=== PATIENT | male | born 1940 | race Caucasian/White ===

== ENCOUNTER 2016-09-28 10:57 | Inpatient (IN) | payer OTHER, MEDICARE ==
--- NOTE | 2016-09-28 11:11 | CPEKG ---
Heart Rate: 55 RR Interval: 1091 P-R Interval: 172 QRSD Interval: 90 QT Interval: 464 QTC Interval: 444 QRS [place]: 22 T Wave [place]: 8 EKG Severity - ABNORMAL ECG - EKG Impression: ATRIAL-PACED RHYTHM Electronically Signed By: Fer Gorman 28-Sep-2016 14:47:21
[2016-09-28] MEDS ORDERED: NS 1,000 ML IV ONE (11:13)
--- NOTE | 2016-09-28 11:13 | EDPHY ---
HPI/HX/ROS/PE/MDM Narrative: CHIEF COMPLAINT: "Strange state of consciousness" HPI: This patient is an anticoagulated 75 y/o male arriving with his family complaining of sudden onset "strange state of consciousness" this morning. He reports that he developed a "vertiginous kind of feeling" and difficulty balancing while walking to his kitchen this morning, which has persisted. He describes associated tingling over his entire body. His symptoms did not improve with rest or lying down. He has been treated recently for a flare-up of gout with Indomethacin and Prednisone. He started Eliquis for atrial fibrillation within the last week. His family notes he has been under considerable stress recently. REVIEW OF SYSTEMS: Aside from elements discussed in the HPI, a comprehensive 10- point review of systems was reviewed and is negative. PMH: Atrial fibrillation (Eliquis), pacemaker, gout (Indomethacin, Prednisone) SOCIAL HISTORY: Family at bedside. Psychiatrist. Currently moving residences. PCP: Dr. Whitaker PHYSICAL EXAM: General:Patient is alert, in no acute distress. BP 222/104 ENT:Eyes are normal to inspection. ENT inspection normal. Neck: Normal inspection. Full range of motion. Respiratory:No respiratory distress. Breath sounds normal bilaterally. Cardiovascular: Regular rate and rhythm. Strong peripheral pulses. Normal cap refill. Abdomen:The abdomen is nontender to palpation. There are no peritoneal signs. Back: Normal to inspection. No tenderness to palpation. Skin: Normal color. No rash. Warm and dry. Extremities: Normal appearance. Full range of motion. Neuro: Oriented x3. Normal motor function. Normal sensory function. No pronator drift. Rukqme-bb-jvin exam normal. Rtmt-wk-[id number] exam normal. Face symmetric. Normal speech. ED Course: The patient is an anticoagulated 75 y/o male who presents today complaining of acute onset difficulty balancing upon standing and subsequent anxiety. He has a normal neurologic exam. Notably, his initial BP was 222/104. We discussed treatment options and he agreed with head imaging. IV established, labs ordered including CBC, CHEM, PTPTT, Toponin, and LFTs. Patient placed on primary care sales representative. 1L IV NS administered. 11:50 CT Head unremarkable per Dr. Coronado. The 12 lead EKG was interpreted by myself. See hard copy and/or "tracemaster" electronic copy for interpretation. Atrial paced rhythm. Reevaluated patient. Discussed CT head result. Labs unremarkable. Plan for MRI. RN reports patient did well while ambulating by himself. Though he continues to report symptoms, his gait was objectively normal. Unfortunately, we cannot proceed with brain MRI due to patient's pacemaker. 12:[address] Etienne regarding admission. MDM: This patient presents with a number of complaints including AMS and feeling off balance. There are no objective signs of stroke, and patient walks with a steady gait despite complaint of feeling off-balance. His workup including CTH is negative, but I am unable to perform an MRI due to his pacemaker in order to rule out posterior fossa disease, small CVA. There is certainly no indication for tPA. The major item of concern is his elevated BP, which was quite high on arrival, but has been trending down without intervention. The patient and his family are very concerned, and feel comfortable with the plan for admission to the hospital for further workup and observation, as well as potential neurology consult. I see no evidence for ACS, sepsis, SAH, brain mass, CVA. - Data Points Imaging Results: Imaging Impressions Head CT 09/28/16 11:14 Impression: 1. Mild age-related stable atrophy. 2. No hemorrhage, mass effect, or definite acute peripheral infarct. Findings discussed with Fer Gorman MD at 11:53 hour, 09/28/2016. Imaging: Discussed imaging studies w/ director call Radiologist Laboratory Results: Laboratory Results 09/28/16 11:35 09/28/16 11:35 09/28/16 09/28/16 09/28/16 11:35 11:35 11:35 WBC 6.58 10^3/uL 10^3/uL (3.80-9.50) RBC 4.16 10^6/uL L 10^6/uL (4.40-6.38) Hgb 13.7 g/dL g/dL (13.7-17.5) Hct 40.0 % % (40.0-51.0) MCV 96.2 fL fL (81.5-99.8) MCH 32.9 pg pg (27.9-34.1) MCHC 34.3 g/dL g/dL (32.4-36.7) RDW 13.2 % % (11.5-15.2) Plt Count 233 10^3/uL 10^3/uL (150-400) MPV 9.4 fL fL (8.7-11.7) Neut % (Auto) 62.1 % % (39.3-74.2) Lymph % (Auto) 28.7 % % (15.0-45.0) [place] % (Auto) 7.1 % % (4.5-13.0) Eos % (Auto) 0.5 % L % (0.6-7.6) Baso % (Auto) 0.5 % % (0.3-1.7) Nucleat RBC Rel Count 0.0 % % (0.0-0.2) Absolute Neuts (auto) 4.09 10^3/uL 10^3/uL (1.70-6.50) Absolute Lymphs (auto) 1.89 10^3/uL 10^3/uL (1.00-3.00) Absolute Monos (auto) 0.47 10^3/uL 10^3/uL (0.30-0.80) Absolute Eos (auto) 0.03 10^3/uL 10^3/uL (0.03-0.40) Absolute Basos (auto) 0.03 10^3/uL 10^3/uL (0.02-0.10) Absolute Nucleated RBC 0.00 10^3/uL 10^3/uL (0-0.01) Immature Gran % 1.1 % % (0.0-1.1) Immature Gran # 0.07 10^3/uL 10^3/uL (0.00-0.10) PT 13.6 SEC SEC (12.0-15.0) INR 1.05 (0.83-1.16) APTT 26.9 SEC SEC (23.0-38.0) Sodium 141 mEq/L mEq/L (134-144) Potassium 4.4 mEq/L mEq/L (3.5-5.2) Chloride 107 mEq/L mEq/L (97-110) Carbon Dioxide 22 mEq/l mEq/l (22-31) Anion Gap 12 mEq/L mEq/L (8-16) BUN 19 mg/dL mg/dL (7-23) Creatinine 1.1 mg/dL mg/dL (0.7-1.3) Estimated GFR > 60 Glucose 96 mg/dL mg/dL (70-100) Calcium 8.8 mg/dL mg/dL (8.5-10.4) Total Bilirubin 0.6 mg/dL mg/dL (0.1-1.4) Conjugated Bilirubin 0.4 mg/dL mg/dL (0.0-0.5) Unconjugated Bilirubin 0.2 mg/dL mg/dL (0.0-1.1) AST 24 IU/L IU/L (17-59) ALT 33 IU/L IU/L (21-72) Alkaline Phosphatase 73 IU/L IU/L (38-126) Troponin I < 0.012 ng/mL ng/mL (0-0.034) Total Protein 6.9 g/dL g/dL (6.3-8.2) Albumin 4.0 g/dL g/dL (3.5-5.0) Medications Given: Discontinued Medications Sodium Chloride (Ns) 1,000 mls @ 0 mls/hr IV ONCE ONE PRN Reason: Wide Open Stop: 09/28/16 11:14 Last Admin: 09/28/16 11:40 Dose: 1,000 mls General Time Seen by Provider: 09/28/16 11:04 Initial Vital Signs: Initial Vital Signs Temperature (C) 36.8 C 09/28/16 10:57 Heart Rate 62 09/28/16 10:57 Respiratory Rate 18 09/28/16 10:57 Blood Pressure 222/104 H 09/28/16 10:57 O2 Sat (%) 95 09/28/16 10:57 O2 Delivery Mode Room Air Allergies/Adverse Reactions: Sulfa (Sulfonamide Antibiotics) Allergy (Verified 09/28/16 11:35) ELEVATED LIVER ENZYMES Home Medications: Medication Instructions Recorded Allopurinol [Allopurinol 100 MG 100 mg PO BID 09/28/16 (*)] Apixaban [Eliquis] 5 mg PO BID 09/28/16 Atorvastatin Calcium [Lipitor 10 10 mg PO DAILY 09/28/16 mg (*)] Cholecalciferol Vit D3 [Vitamin D3 5,000 units PO DAILY 09/28/16 (*)] Doxylamine Succinate [Nighttime 25 mg PO HS PRN 09/28/16 Sleep-Aid] Herbals/Supplements -Info Only 1 ea PO DAILY 09/28/16 Lisinopril [Zestril 5 mg (*)] 5 mg PO DAILY 09/28/16 Naproxen 250 mg PO BID PRN 09/28/16 Omeprazole [Prilosec 20 mg] 20 mg PO DAILY 09/28/16 predniSONE 10 mg PO DAILY 09/28/16 Departure - Departure Disposition: [facility] Inpatient Acute Clinical Impression: Difficulty balancing Condition: Fair Report Scribed for: Fer Gorman Report Scribed by: Xi Kaur Date of Report: 09/28/16 Time of Report: 11:14 Physician Review and Approval Statement: Portions of this note were transcribed by an ED scribe. I personally performed the history, physical exam, and medical decision making; and confirm the accuracy of the information in the transcribed note.
[2016-09-28 11:41] LABS: % IMMATURE GRANULYOCYTES 1.1 % (0.0-1.1); ABSOLUTE IMMATURE GRANULOCYTES 0.07 10^3/uL (0.00-0.10); ADD DIFF? NO; ADD MORPH? NO; ADD SCAN? NO; ATYPICAL LYMPHOCYTE FLAG 10 (0-99); FRAGMENT RBC FLAG 0 (0-99); HEMOGLOBIN 13.7 g/dL (13.7-17.5); LEFT SHIFT FLG 10 (0-99); LIPEMIA HEMOLYSIS FLAG 90 (0-99); MEAN CELL HEMOGLOBIN 32.9 pg (27.9-34.1); MEAN CELL HEMOGLOBIN CONCENTR. 34.3 g/dL (32.4-36.7); MEAN CELL VOLUME 96.2 fL (81.5-99.8); MEAN PLATELET VOLUME 9.4 fL (8.7-11.7); PLATELET CLUMPS FLAG 10 (0-99); PLATELET COUNT 233 10^3/uL (150-400); RED BLOOD CELL COUNT 4.16 10^6/uL (4.40-6.38); RED CELL DISTRIBUTION WIDTH 13.2 % (11.5-15.2)
[2016-09-28 11:50] LABS: APTT 26.9 SEC (23.0-38.0); INR 1.05 (0.83-1.16); PROTIME(PATIENT) 13.6 SEC (12.0-15.0)
[2016-09-28 11:53] LABS: ALANINE AMINOTRANSFERASE 33 IU/L (21-72); ALKALINE PHOSPHATASE 73 IU/L (38-126); ANION GAP 12 mEq/L (8-16); ASPARTATE AMINOTRANSFERASE 24 IU/L (17-59); BILIRUBIN,TOTAL 0.6 mg/dL (0.1-1.4); BILIRUBIN-CONJUGATED 0.4 mg/dL (0.0-0.5); BILIRUBIN-UNCONJUGATED 0.2 mg/dL (0.0-1.1); CALCIUM 8.8 mg/dL (8.5-10.4); CARBON DIOXIDE 22 mEq/l (22-31); CHLORIDE 107 mEq/L (97-110); CREATININE 1.1 mg/dL (0.7-1.3); GLOMERULAR FILTRATION RATE > 60; GLUCOSE 96 mg/dL (70-100); POTASSIUM 4.4 mEq/L (3.5-5.2); SODIUM 141 mEq/L (134-144); TOTAL PROTEIN 6.9 g/dL (6.3-8.2)
[2016-09-28 12:04] LABS: TROPONIN I < 0.012 ng/mL (0-0.034)
[2016-09-28] MEDS ORDERED: ONDANSETRON 4 MG/2 ML VIAL IVP PRN (14:38)
[2016-09-28] MEDS ORDERED: ACETAMINOPHEN 325 MG TAB PO PRN (14:38)
--- NOTE | 2016-09-28 17:34 | PDGENHP ---
History and Physical History and Physical: HISTORY AND PHYSICAL CC: Dizziness HISTORY: This patient was feeling well until earlier today when he was lying on a couch. As he got up from the couch to walk to the kitchen he suddenly had onset of what he describes as "a strange state of consciousness". When asking for more details about this he describes a vague type of dizziness that is neither vertigo nor lightheadedness and without any other neurologic symptoms, hearing symptoms, visual symptoms, headache, palpitations or chest pain, shortness of breath, nausea or febrile symptoms. The this symptom persisted to eventually came into the ER. This symptom itself is gradually dissipating at this time. He still feels that but less than what he started with. He has never had an episode of this kind of symptom before. Prior to this episode today he has had no other recent illness of any kind and has been feeling as well as usual physically. He does admit to having a lot of stress in related to moving house as well as his 's multiple sclerosis and dementia. He normally plays tennis a few times a week but has not been doing that for the past month or so due to his schedule and moving house. He has noticed no difficulty keeping up with physical activity though. There is a history of atrial fibrillation. This was noticed on interrogation of his pacemaker which is present for sick sinus syndrome. His atrial fibrillation so far has been completely asymptomatic and without fast heart rates, so he is started recently on anticoagulant with Eliquis but he is not on rate control medicine. In terms of his blood pressure does mention that he has some white coat syndrome. He is on a low-dose of lisinopril for the blood pressure. In addition to the above the patient did have a gout attack in his right 1st toe just recently. He was started on some prednisone for that and the prednisone has resolved gout symptoms entirely. He is still taking prednisone currently at 20 mg daily. 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 His has MS and some dementia and is fairly debilitated. They have just sold their house and moved into a new house recently and he has had a lot of stress related to that. He does not use tobacco or alcohol. MEDICATIONS: The patients list has been reconciled by our clinical pharmacist in the EMR. I have reviewed the list and ordered appropriate medicines. PHYSICAL EXAMINATION: Vital Signs: Quite hypertensive with initial blood pressure 200/102. This be hypertension is persisting so far. Pulse respirations temperature all normal Special Deputy Sheriff: sinus rhythm in the ER Examination: General: alert, oriented, good mentation, relaxed Neurologic: normal speech/language, normal sample worker, no focal weakness No tremor, nothing that looks like any kind of withdrawal, pupils normal Skin: warm, dry, good color, no rash; he does have numerous actinic keratoses HEENT: normal Neck: no mass or jvd Resps: relaxed Lungs: clear breath sounds Heart: regular, there is a 2/6 systolic murmur at the base Abdomen: soft, nondistended, nontender, +BS, no mass Upper Extremities: normal Lower Extremities: no edema, warm No Bleeding or bruising IV site: looks normal LABORATORY DATA: Unremarkable coagulation studies, troponin, met panel, and CBC RADIOLOGY STUDIES: Noncontrast CT scan of head done in the ER, I reviewed the images and my interpretation is: No evidence of stroke, bleed, mass, or other acute abnormality 12 lead EKG in the ER, my review tracing: Sinus rhythm with no ischemic or other concerning abnormalities ASSESSMENT: -Acute dizziness episode which is vaguely described hard to characterize or place into a likely etiologic syndrome -Hypertensive urgency, and it is possible that the hypertension is actually causing his acute symptoms above -Recent gout attack in toe is resolved after steroids which she still taking; notably the steroids could be contributing to his hypertension -recent diagnosis of atrial fibrillation without fast heart rate, recently started on Eliquis - PLANS: -observe overnight for resolution of symptoms -Will add further blood pressure medicine and follow blood pressures very closely, observing for any possible other complications of the blood pressure -Will get records from Dr. Estrella regarding his recent at echocardiogram and pacemaker interrogation which were done just about a week ago -Otherwise continue his usual medicines for now I have reviewed the patient's case in detail with Dr. Fer Gorman and I will be reviewing with Dr. Estrella I have reviewed the patient's past medical records as part of this assessment, including past hospitalization records here
[2016-09-28] MEDS ORDERED: DOXYLAMINE SUCCINATE 25 MG PO PRN (17:40)
[2016-09-28] MEDS: APIXABAN 5 MG TAB PO SCH (20:35)
[2016-09-28] MEDS ORDERED: CALCIUM CARBONATE 500 MG CHEWABLE TAB PO PRN (23:10)
[2016-09-28] MEDS: ZOLPIDEM TARTRATE 5 MG TAB PO PRN (23:21)
[2016-09-29] MEDS ORDERED: ENOXAPARIN 40 MG/0.4 ML SYR SC SCH (09:00)
[2016-09-29] MEDS: LISINOPRIL 5 MG TAB PO SCH (10:19)
[2016-09-29] MEDS: CHOLECALCIFEROL VIT D3 1,000 UNITS TAB PO SCH (10:19)
[2016-09-29] MEDS: PANTOPRAZOLE SODIUM 40 MG TAB PO SCH (10:19)
[2016-09-29] MEDS: ATORVASTATIN CALCIUM 10 MG TAB PO SCH (10:20)
[2016-09-29] MEDS: predniSONE 20 MG TAB PO SCH (10:20)
[2016-09-29] MEDS: APIXABAN 5 MG TAB PO SCH ×2 (10:20→20:47)
[2016-09-29 11:46] LABS: CHOLESTEROL 124 mg/dL (140-220); CHOLESTEROL/HDL RATIO 2.48 RATIO (1.00-4.97); HIGH DENSITY LIPOPROTEIN 50 mg/dL (40-65); LDL/HDL RATIO 1.22 RATIO (1.00-3.64); LOW DENSITY LIPOPROTEIN 61 mg/dL (80-100); NON-HIGH DENSITY LIPOPROTEIN 74 mg/dL (90-129); TRIGLYCERIDE 69 mg/dL (40-150); VERY LOW DENSITY LIPOPROTEINS 13 mg/dL (8-25)
[2016-09-29] MEDS ORDERED: LISINOPRIL 5 MG TAB PO ONE (14:54)
--- NOTE | 2016-09-29 17:37 | HOSPPROG ---
Hospitalist Progress Note Assessment/Plan: DIAGNOSES: 1- DIZZINESS, UNCERTAIN CAUSE -I reviewed in detail at the bedside today with Dr Presley. Stroke or TIA seem unlikely from presentation, but will continue to do preventive measures going forward. LDL good, on anticoag, but BP needs better control and ongoing close monitoring 2- UNCONTROLLED HTN -will increase lisinopril at this time and follow 3- HX OF ASYMPTOMATIC A FIB 4- WIDE COMPLEX TACHYCARDIA ON MONITOR WITH WALKING -unclear mechanism from monitor. ? if could be walking related sinus tach with V pacing, vs V Tach or other -will transfer to PCU and continue monitoring. I spoke w pacer [employer] who noted this episode would not show on the pacer due to the setting of 180 or > to record ventricular rate events -will consult cardiology -if we conclude that this is a sinus driven rythym, would need to answer why he got so fast just walking in [place] Will need to change to inpatient due to above SUBJECTIVE: yesterday's sxs resolved no palpitaions, CP, fever sxs, sob, or neuro sxs eating well This afternoon I had him walk in [place], which he did but felt "strange" again though he says different from yesterday; like yesterday, this symptom is very vaguely described and nonspecific However, when hooked backup to monitor after walk he was in rapid wide complex rythym, rate upper 130s?. This went on for less than a minute, and was interupted by a single normal QRS followed by a migrating axis over the next 3 beats leading back into the same wide complex rythym. Subsequent conversion back to his normal sinus with narrow complex. All of this only visible in single lead, and I am not able to determine mechanism with certainty. Objective: BPs better overnight and in am, but this afternoon back to 180s syst otherwise stable Exam alert oriented relaxed no focal neuro changes pulse regular resps easy lungs clear heart reg no edema LDL 61 Objective: Vital Signs Temp Pulse Resp BP Pulse Ox 36.4 C 70 16 147/98 H 91 L 09/29/16 15:46 09/29/16 15:46 09/29/16 15:46 09/29/16 15:56 09/29/16 15:46 09/28/16 09/29/16 09/30/16 06:59 06:59 06:59 Intake Total 1900 Balance 1900 PT 13.6 SEC (12.0-15.0) 09/28/16 11:35 INR 1.05 (0.83-1.16) 09/28/16 11:35 ICD10 Worksheet Patient Problems: Problems Problem Status Onset Difficulty balancing Acute Pacemaker Acute Sick sinus syndrome Acute
[2016-09-29] MEDS ORDERED: hydrALAZINE 20 MG/ML VIAL IVP ONE (19:46)
--- NOTE | 2016-09-29 19:48 | NEUROPROG ---
Assessment: CC: Dizziness HPI: This 68M patient was initially seen as an inpatient consult on 09/29/16. He reported on 09/28/16 he felt "altered". He said he did not feel quite right but denied hearing loss, chest pain, vertigo, lightheadeness, vision chagnes, headache, SOB, N/V, or fever. He has a very stressful life caring for his with dementia and multiple sclerosis. Review of medical records finds brain MRI in 2008 (normal) for hearing loss evaluation and head/neck CTA in 2013 ( normal) for evaluation of neurologic symptoms. He also had a head CT in 2014 ( normal) with the indication being altered mental status which he said was a similar episode as today precipitated by using edible marijuna. It appears no significant neurologic dysfunction has ever been diagnosed in the past. He does have known cardiac disease. His blood pressure has been elevated this admission. His is at bedside and she reported he has been having months of these spells of feeling "altered" and "dizzy" without any permanent sequelae. He currently feels normal without problems. PMHx: sick sinus syndrome resulting in a pacemaker, HTN, HLD, Gout, afib, ischemic colitis, LAYA on CPAP, mild non-flow limiting CAD SHx: cares for whom has dementia and MS FHx: heart disease, vascular disease, leukemia ROS: Pt denied acute fever, total vision loss, active severe chest pain, respiratory failure, total body severe rash, total bowel/bladder incontinence, psychosis, active seizures, or active bleeding O: bp 181/100 P65 RR 16 Satting 92% on RA General: Alert Eyes: Fundoscopic exam not able to visualize optic disks CV: Heart RRR, no murmur, no carotid bruit Lungs: Clear to auscultation bilaterally, no rhonci or rales Neuro: - Mental:. Oriented x person/place/date. concentration appears normal. speech fluency/comprehension normal. memory appears normal. fund of knowledge appear intact - Cranial Nerves:. II: PERRL, VFFTC. III/IV/: EOMI, no nystagmus, normal smooth pursuits, no Ptosis. V: facial sensation intact to LT. VII : face symmetric to eye closure and smile. VIII: hearing intact to conversation. IX/X: uvula raises symmetrically. XI: SCM 5/5 B/L strength. XII: tongue protrudes midline w/nl strength - Motor: Tone: normal tone in all 4 extrem. Strength: no pronator drift, strength 5/5 throughout (B/L delt, bic, tri, hand tube balancer, hf/he, df/pf)- Reflexes : B/L bic/BR/patella 2/4 - Sensory: all 4 extrem intact to light touch - Coord: [id number] wnl, ROSLYN wnl, gjju-zn-[id number] wnl - Gait: deferred Labs: 09/28/16- CBC wnl, Coags wnl, CMP wnl 09/29/16- LDL 61L Rads: 2008- Brain/IAC MRI w/ and w/o con: normal 2013- CTA head/neck: normal 09/28/16- Head CT w/o con: mild atrophy, no acute changes (I personally visualized the images on 09/29/16) Assessment: 1. Transient episodes of feeling light headed and dizzy: His neurologic exam on 09/29/[address] on 09/28/16 were both normal. He cannot have a brain MRI due to a pacemaker and he declined a carotid U/S on 09/29/16. His episodic symptoms of vaguely defined "dizziness" and "lightheadedness" occurring randomly for the past few months seem most consistent with atypical migraine in my opinion. In addition, he had neurologic evaluations in 2008, 2013, and 2014 for similar poorly defined neurologic episodes that are likely the same etiology as the recent event. TIA or stroke seems unlikely given symptoms recur frequently for months with no resiudual neurologic defects and a normal head CT. Atypical seizures, hypertensive emergency, or symptomatic cardiac afib are also possible causes of his symptoms which seem less likely. At this time I think it makes sense to ensure good stroke precaution guidelines (bp < 140/90, good glucose control, LDL < 70 (61)) and maintain eliquis for afib and his statin. He can continue working with his outpatient chief airport guide (Dr. Estrella ) and f/u in 2-4 weeks with me to ensure he improves. He was counseled on migraine supplements to start now and at f/u visit we can discuss stronger migraine prophylaxis if needed. 2. History of SSS with pacemaker, afib 3. HTN: defer management to hospitalist Plan: - Patient counseled on migraine prophylaxis supplements: magnesium, B2, feverfew - F/U in 2-4 weeks in outpatient neurology clinic to ensure symptoms improve, pt given my contact information No further neurologic workup needed, neurology will sign off. Objective: Vital Signs Temp Pulse Resp BP Pulse Ox 36.4 C 70 16 172/111 H 91 L 09/29/16 18:35 09/29/16 18:35 09/29/16 18:35 09/29/16 18:35 09/29/16 18:35 09/28/16 09/29/16 09/30/16 05:59 05:59 05:59 Intake Total 1400 Balance 1400 PT 13.6 SEC (12.0-15.0) 09/28/16 11:35 INR 1.05 (0.83-1.16) 09/28/16 11:35 Allergies/Adverse Reactions: Sulfa (Sulfonamide Antibiotics) Allergy (Verified 09/28/16 11:35) ELEVATED LIVER ENZYMES
[2016-09-29] MEDS: ZOLPIDEM TARTRATE 5 MG TAB PO PRN (22:59)
[2016-09-30 04:34] LABS: ANION GAP 9 mEq/L (8-16); CALCIUM 8.8 mg/dL (8.5-10.4); CARBON DIOXIDE 20 mEq/l (22-31); CHLORIDE 108 mEq/L (97-110); CREATININE 1.2 mg/dL (0.7-1.3); GLOMERULAR FILTRATION RATE 59; GLUCOSE 102 mg/dL (70-100); POTASSIUM 4.4 mEq/L (3.5-5.2); SODIUM 137 mEq/L (134-144)
[2016-09-30 04:40] LABS: TROPONIN I < 0.012 ng/mL (0-0.034)
[2016-09-30] MEDS: ATORVASTATIN CALCIUM 10 MG TAB PO SCH (08:21)
[2016-09-30] MEDS: APIXABAN 5 MG TAB PO SCH ×2 (08:21→20:45)
[2016-09-30] MEDS: CHOLECALCIFEROL VIT D3 1,000 UNITS TAB PO SCH (08:21)
[2016-09-30] MEDS: LISINOPRIL 5 MG TAB PO SCH ×2 (08:21→20:45)
[2016-09-30] MEDS: predniSONE 20 MG TAB PO SCH (08:23)
[2016-09-30] MEDS ORDERED: IOPAMIDOL (ISOVUE 370) 100 ML BTL IV ONE (08:26)
--- NOTE | 2016-09-30 09:33 | SOAPPROG ---
[facility] Progress Note Assessment/Plan: Assessment: 1. Admit with vague symptoms of not feeling well. 2. Recent history of sustained atrial fibrillation. Patient was started on Eliquis 5 mg bid. No new sustained events on telemetry or multiple pacemaker interrogations this admission. 3. Sick sinus syndrome with dual chamber PPM in place. ? wide complex tachycardia seen around 1411 yesterday prior to anticipated discharge. Pacer was kept overnight. Pacer was interrogated again last night. There was no detected PMT. Episode is suspected to be v pacing. Retrograde test was negative. Adjustments made to device included reduction in rate response, decrease in HVR detection threshold to 150 bpm. Discussed again with [employer] rep this am. 4. Uncontrolled HTN on lisinopril 5 mg once daily. 5. CAD. 6. Hyperlipidemia. 7. Positive D-dimer w/ chest CTA pending. Plan: 1. Increase lisinpril to 5 mg po BID. 2. [employer] rep to again review telemetry strips and reinterrogate if necessary. 3. Continue all other home medications. 4. Follow up with our office in 1-2 weeks. 09/30/16 09:48 Subjective: Patient feels better today. [employer] rep contacted and we discussed her reinterrogation from yesterday along with programming changes. Objective: Vital Signs Temp Pulse Resp BP Pulse Ox 36.5 C 56 L 15 139/81 H 91 L 09/30/16 07:25 09/30/16 07:25 09/30/16 07:25 09/30/16 07:25 09/30/16 07:25 Laboratory Results 09/30/16 03:53 09/29/16 09/30/16 10/01/16 05:59 05:59 05:59 Intake Total 1800 Balance 1800 PT 13.6 SEC (12.0-15.0) 09/28/16 11:35 INR 1.05 (0.83-1.16) 09/28/16 11:35 ICD10 Worksheet Patient Problems: Problems Problem Status Onset Difficulty balancing Acute Pacemaker Acute Sick sinus syndrome Acute
[2016-09-30] MEDS: PANTOPRAZOLE SODIUM 40 MG TAB PO SCH (10:49)
--- NOTE | 2016-09-30 20:33 | HOSPPROG ---
Hospitalist Progress Note Assessment/Plan: DIAGNOSES: 1- DIZZINESS, UNCERTAIN CAUSE -migraine or symptoms of HTN are possible etiology; he feels better with improved BP control 2- UNCONTROLLED HTN -continue higher dose of lisinopril at this time and follow 3- HX OF ASYMPTOMATIC A FIB 4- WIDE COMPLEX TACHYCARDIA ON MONITOR WITH WALKING -strongly suspect PMT; PE is ruled out -however as he has marked exertional weakness must have some suspicion for ischemia as well I have reviewed the progress and cardiac rythyms, diagnoses, management in detail with LENY Nova and Dr William Del Valle (who did not see the patient) today. The pacemaker rep was unable to demonstrate any VA conduction during pacer interogation, but per my Discussion with Dr Del Valle, this is an unreliable finding in PMT and is often absent. It is felt that the most likely cause of the rythym noted 09/29 was PMT. Today the patient did have paced rythym during ambulation with HR high 90s and felt very weak and had to lie down with that. It is postulated that he may not tolerated V pacing, or that he could have ischemia. PLANS: will arrange stress test with nuclear myocardial perfusion scan, and with pacer interogation during exercise SUBJECTIVE: initial presenting sxs resolved however, again when he walked this afternoon, he became very weak and dizzy and had to be assisted back to bed At this time his monitor was showing AV sequential paced rythym with rate in high 90s There was no angina or equivalent discomfort, no palpitation, no sob No neurologic sxs otherwise Objective: BPs are notably better today,, with systolic mainly in the 130s otherwise stable quality assurance monitor final mainly NSR with a few PACs, but with the changes noted above No further PMT noted, nothing that looks like a ventricular arrythmis Exam alert oriented relaxed no focal neuro changes pulse regular resps easy lungs clear heart reg no edema LDL [address] chest done today, I reviewed images w Dr Medrano: no PE Objective: Vital Signs Temp Pulse Resp BP Pulse Ox 36.6 C 59 L 12 147/86 H 93 09/30/16 15:54 09/30/16 15:54 09/30/16 15:54 09/30/16 15:54 09/30/16 15:54 Laboratory Results 09/30/16 03:53 09/29/16 09/30/16 10/01/16 06:59 06:59 06:59 Intake Total 1800 Balance 1800 PT 13.6 SEC (12.0-15.0) 09/28/16 11:35 INR 1.05 (0.83-1.16) 09/28/16 11:35 ICD10 Worksheet Patient Problems: Problems Problem Status Onset Difficulty balancing Acute Pacemaker Acute Sick sinus syndrome Acute
[2016-09-30] MEDS: ZOLPIDEM TARTRATE 5 MG TAB PO PRN (22:35)
[2016-09-30 23:44] VITALS: O2SAT 96
[2016-10-01] MEDS: ZOLPIDEM TARTRATE 5 MG TAB PO PRN (04:14)
[2016-10-01 07:44] VITALS: BP 135/79; PULSE 66; RESP 12; TEMP 97.8
[2016-10-01] MEDS: CHOLECALCIFEROL VIT D3 1,000 UNITS TAB PO SCH (10:05)
[2016-10-01] MEDS: APIXABAN 5 MG TAB PO SCH (10:06)
[2016-10-01] MEDS: PANTOPRAZOLE SODIUM 40 MG TAB PO SCH (10:06)
[2016-10-01] MEDS: predniSONE 20 MG TAB PO SCH (10:06)
[2016-10-01] MEDS: ATORVASTATIN CALCIUM 10 MG TAB PO SCH (10:07)
[2016-10-01] MEDS: LISINOPRIL 5 MG TAB PO SCH (10:07)
[2016-10-01] MEDS ORDERED: REGADENOSON 0.4 MG/5 ML SYR IVP ONE (10:50)
--- NOTE | 2016-10-01 13:01 | PDCARST ---
CAR Stress Test Results Type of Stress Test: Lexiscan stress test Indication: CAD/dizziness Description of Procedure: STRESS EKG AND HEMODYNAMIC DATA. Resting heart rate: 62 BPM. Resting blood pressure: 132/70 mmHg. Peak heart rate: 70 BPM. Peak blood pressure: 135/80 mmHg. Arrhythmias: Rest: None Stress: PVCs/ PVC couplets Recovery: PVCs. Symptoms: The patient experienced no typical symptoms of angina during stress or recovery. Impression: Stress Test Analysis. Resting ECG shows sinus rhythm. Stress/ Infusion ECG: No change in rhythm with no significant ST/T wave changes. Blood pressure: physiologic Conclusion: Await nuclear images.
--- NOTE | 2016-10-01 17:42 | PDDCSUM ---
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 Dave Presley PROCEDURES: CT scan of head with no acute abnormalities Lexiscan stress test with myocardial perfusion imaging showing no perfusion abnormalities or myocardial dysfunction CT angiogram of chest showing no evidence of PE HOSPITAL COURSE SUMMARY: the patient came to the hospital with complaint of a very vague dizzy type sensation although it was a very nonspecific symptoms. Had gone on for several hours at the time of presentation. His neurologic examination was normal at presentation and remained normal through his hospital stay. CT scan was unremarkable. He was seen by Dr. soria from Neurology who did not think that he had had stroke but consider the possibility of migraine. In addition the patient was quite hypertensive and it was considered that his symptoms may have been a symptom of hypertension. Subsequently the patient did and had a recurrent episode of this same vague sensation when he was up walking and during this time his playground monitor showed what looked like pacemaker mediated tachycardia. He was seen by the software support representative from his [email or web address] pac[employer] and they made some adjustments in his pacemaker and he did not have anything else that looks like pacemaker mediated tachycardia after this. He did have 1 other episode where he had AV sequential pacing at heart rate of 98 while walking had similar symptoms that resolved. The patient had CT scan showing no evidence of PE. He underwent Lexiscan stress testing which showed no evidence of myocardial ischemia or ventricular dysfunction. At this time he is up walking in the hallway without difficulty. He is felt stable for discharge to home. PENDING TEST RESULTS: None MEDICATION CHANGES: Increase lisinopril from 5 mg daily to 10 mg daily FOLLOW-UP PLAN: With Dr. Dave aguiar next week Greater than 35 minutes bedside and care coordination time today
== END 2016-10-01 16:56 | disposition home or self-care (01) | DRG 315 ==
LOC: F3N 13:53 → OBSVTOIN 09-29 17:37 → F2W 09-29 18:26
PROVIDERS: ADMIT Internal Medicine; ATTEND Internal Medicine
DX: T82.198A Other mechanical complication of other cardiac electronic device, initial encounter (principal); I47.2 Ventricular tachycardia; I16.0 Hypertensive urgency; I48.91 Unspecified atrial fibrillation; M10.9 Gout, unspecified; I49.5 Sick sinus syndrome; G47.33 Obstructive sleep apnea (adult) (pediatric); E78.5 Hyperlipidemia, unspecified; Z95.0 Presence of cardiac pacemaker; Z79.01 Long term (current) use of anticoagulants
CPT/HCPCS: A9500; G0378; J0360; J1650; J2785; Q9967

== ENCOUNTER → 2017-04-24 | Outpatient (CLI) | payer OTHER, MEDICARE | LOC: FIMAGING 09:30 | DX: R10.9 Unspecified abdominal pain (principal) ==